=== PATIENT | male | born 1980 | race Caucasian/White ===

== ENCOUNTER 2025-01-02 18:49 | Emergency (ER) | payer OTHER, SELFPAY ==
[2025-01-02 18:51] VITALS: BP 140/95; PULSE 68; TEMP 36.6; O2SAT 96; BMI 23.7
--- NOTE | 2025-01-02 19:12 | ED_ITS ---
HPI HPI - General Adult General Chief complaint: Abdominal Pain Stated complaint: ABDOMINAL PAIN Time Seen by Provider: 01/02/25 18:50 Source: patient Mode of arrival: Wheelchair Limitations: no limitations History of Present Illness HPI narrative: Patient is a 44-year-old male who presents to the emergency department for evaluation of umbilical and epigastric abdominal pain that began this afternoon. He states the pain was worse after eating this afternoon. He has had no fevers, nausea, vomiting or diarrhea. He states he had a normal bowel movement this morning. No urinary symptoms. He denies any previous abdominal surgeries. No medications taken prior to arrival. Related Data Previous Rx's ?Medication ?Instructions ?Recorded dicyclomine 20 mg tablet 20 mg PO QID PRN abdominal pain 01/02/25 #12 tabs famotidine 20 mg tablet (Pepcid) 20 mg PO BID #10 tabs 01/02/25 hydrocodone 5 mg-acetaminophen 325 1 tab PO Q6H PRN pain 3 days #12 01/02/25 mg tablet tabs ondansetron 4 mg disintegrating 4 mg PO Q6H PRN nausea and 01/02/25 tablet vomiting #12 tabs Allergies Allergy/AdvReac Type Severity Reaction Status Date / Time No Known Drug Allergies Allergy Verified 01/02/25 18:54 Opioid HPI Opioid Management Most Recent Opioid Data: No Data to Display Review of Systems ROS Constitutional Denies: fever or chills Ears, nose, mouth, and throat Denies: throat pain or nasal congestion Cardiovascular Denies: chest pain Respiratory Denies: shortness of breath or cough Gastrointestinal Reports: abdominal pain; Denies: nausea, vomiting or diarrhea Musculoskeletal Denies: back pain or neck pain Integumentary/Breast Denies: rash Neurological Denies: numbness in extremities or weakness in extremities Hematologic/Lymphatic Denies: easy bruising or easy bleeding PFSH PFSH Social History Little interest or pleasure in doing things: not at all Feeling down, depressed, or hopeless: not at all Exam Narrative Exam Narrative: Gen.: Awake, alert, in no distress Head: Normocephalic, atraumatic ENT: Moist mucous membranes Respiratory: No respiratory distress Gastrointestinal: Abdomen is soft, tender in the umbilicus and epigastrium with no distention or rigidity. No guarding or rebound Extremities: Moves extremities equally Psych: Normal mood and affect Neuro: No focal neuro deficit Skin: Warm, dry, intact Constitutional Vital Signs, click to edit/add: Last Vital Signs Temp 97.8 F 01/02/25 18:51 Pulse 64 01/02/25 21:46 Resp 16 01/02/25 21:46 BP 128/89 01/02/25 21:46 Pulse Ox 99 01/02/25 21:46 O2 Del Method Room Air 01/02/25 21:46 Course Vital Signs Vital signs: Vital Signs Temperature 97.8 F 01/02/25 18:51 Pulse Rate 68 01/02/25 18:51 Respiratory Rate 22 H 01/02/25 18:51 Blood Pressure 140/95 H 01/02/25 18:51 Pulse Oximetry 96 01/02/25 18:51 Oxygen Delivery Method Room Air 01/02/25 18:51 Temperature 97.8 F 01/02/25 18:51 Pulse Rate 64 01/02/25 21:46 Respiratory Rate 16 01/02/25 21:46 Blood Pressure 128/89 01/02/25 21:46 Pulse Oximetry 99 01/02/25 21:46 Oxygen Delivery Method Room Air 01/02/25 21:46 Medical Decision Making MDM Narrative Medical decision making narrative: Patient treated with IV fluids, morphine, Zofran and Protonix. He is resting comfortably on reevaluation. Laboratory studies reviewed and noted within normal limits. CT of the abdomen and pelvis shows the patient has enteritis with no other acute abnormalities. He was given education and reassurance. Medication sent home with him for tonight and prescription sent to the pharmacy, short course of [place], Zofran, Bentyl and Pepcid. He was instructed to follow a clear liquid diet for 48 hours. Follow-up with PCP and return to the emergency department if symptoms change or worsen. Abdomen is soft and benign at discharge. SUPERVISED APC VISIT, PHYSICIAN ATTESTATION: Based on the medical record the care appears appropriate. ? Medical Records Medical records reviewed: Yes I reviewed the patient's medical records Lab Data Lab results reviewed: Yes I reviewed the patient's lab results Labs: Lab Results 01/02/25 01/02/25 Range/Units 19:20 20:02 WBC 8.9 (4.0-11.0) 10^3/uL RBC 4.96 (4.70-6.10) 10^6/uL Hgb 16.2 (14.0-18.0) g/dL Hct 47.8 (42.0-54.0) % MCV 96.4 H (80.0-94.0) fL MCH 32.7 (25.9-34.0) pg MCHC 33.9 (29.9-35.2) g/dL RDW 13.4 (11.0-15.0) % Plt Count 233 (150-450) 10^3/uL MPV 9.8 (9.5-13.5) fL Neut % (Auto) 73.1 (43.0-75.0) % Lymph % (Auto) 16.9 L (20.5-60.0) % Divide % (Auto) 8.7 (1.7-12.0) % Eos % (Auto) 0.8 L (0.9-7.0) % Baso % (Auto) 0.3 (0.2-2.0) % Neut # (Auto) 6.5 (1.4-6.5) 10^3/uL Lymph # (Auto) 1.5 (1.2-3.8) 10^3/uL Divide # (Auto) 0.8 (0.3-0.8) 10^3/uL Eos # (Auto) 0.1 (0.0-0.7) 10^3/uL Baso # (Auto) 0.0 (0.0-0.1) 10^3/uL Abs Immat Gran (auto) 0.02 (0.00-0.03) 10^3/uL Imm/Tot Granulo (auto) 0.2 (0.0-0.5) % PT 11.0 (9.0-11.6) sec INR 1.04 Sodium 138 (136-145) mmol/L Potassium 3.9 (3.5-5.1) mmol/L Chloride 102 (98-107) mmol/L Carbon Dioxide 34.3 H (21.0-32.0) mmol/L Anion Gap 5.6 BUN 10.0 (7.0-18.0) mg/dL Creatinine 1.27 (0.70-1.30) mg/dL Est GFR ( Amer) >60 (>=60 mL/min/1.73m^2) Est GFR (Non-Af Amer) >60 (>=60 mL/min/1.73m^2) BUN/Creatinine Ratio 7.9 Glucose 96 (74-106) mg/dL Lactate 1.0 (0.4-2.0) mmol/L Calcium 9.7 (8.5-10.1) mg/dL Total Bilirubin 0.9 (0.2-1.0) mg/dL AST 26 (15-37) U/L ALT 40 (16-63) U/L Alkaline Phosphatase 71 (46-116) U/L Total Protein 8.0 (6.4-8.2) g/dL Albumin 4.0 (3.4-5.0) g/dL Globulin 4.0 g/dL Albumin/Globulin Ratio 1.0 Lipase 40.0 (16.0-77.0) U/L Urine Color Lt. yellow (YELLOW) Urine Clarity Clear (CLEAR) Urine pH 7.5 (5.0-9.0) Ur Specific Gerry 1.010 (1.005-1.025) Urine Protein Negative (NEG/TRACE) mg/dL Urine Glucose (UA) Negative (NEGATIVE) mg/dL Urine Ketones Negative (NEGATIVE) mg/dL Urine Occult Blood Negative (NEGATIVE) Urine Nitrite Negative (NEGATIVE) Urine Bilirubin Negative (NEGATIVE) Urine Urobilinogen 4.0 A (0.2-1.0) EU/dL Ur Leukocyte Esterase Negative (NEGATIVE) Urine RBC 0-2 (0-2) #/HPF Urine WBC 0-2 A (NONE SEEN) #/HPF Ur Squamous Epith Cells None seen (NONE/RARE) #/LPF Urine Crystals None seen (None Seen) #/HPF Amorphous Sediment Moderate Urine Bacteria Trace A (NONE SEEN) #/HPF Urine Casts None seen (NONE SEEN) #/LPF Urine Mucus None seen (NONE SEEN) Ur Culture Indicated? No Imaging Data CT scan - abdomen: Attestation: I have reviewed the pertinent imaging results. Discharge Plan Discharge Chief Complaint: Abdominal Pain Clinical Impression: Abdominal pain, Enteritis Patient Disposition: Home, Self-Care Time of Disposition Decision: 21:47 Condition: Good Mode of Transportation: Private Vehicle Prescriptions / Home Meds: New hydrocodone-acetaminophen 5-325 mg tablet 1 tab PO Q6H PRN (Reason: pain) 3 Days Qty: 12 0RF Rx Instructions: DX: R10.9 dicyclomine 20 mg tablet 20 mg PO QID PRN (Reason: abdominal pain) Qty: 12 0RF famotidine [Pepcid] 20 mg tablet 20 mg PO BID Qty: 10 0RF ondansetron 4 mg tablet,disintegrating 4 mg PO Q6H PRN (Reason: nausea and vomiting) Qty: 12 0RF Print Language: Korean Instructions: Clear Liquid Diet (ED), Enteritis (ED) Referrals: Physician,Non-Staff, MD [Primary Care Provider] - 1 week Discharge Date/Time: 01/02/25 22:06
[2025-01-02] MEDS: ONDANSETRON PF 4 MG/2 ML VIAL IV (19:29)
[2025-01-02] MEDS: MORPHINE SULFATE 4 MG/ML VIAL IV (19:29)
[2025-01-02] MEDS: HYOSCYAMINE SULFATE 0.125 MG TAB.SUBL SL ×2 (19:30→22:01)
[2025-01-02] MEDS: PANTOPRAZOLE SODIUM 40 MG VIAL IV (19:30)
[2025-01-02] MEDS: 0.9 % SODIUM CHLORIDE 1,000 ML 999 ML IV (19:30)
[2025-01-02 19:42] LABS: Basophils Percent Auto 0.3 % (0.2-2.0); Eosinophils Absolute Auto 0.1 10^3/uL (0.0-0.7); Eosinophils Percent Auto 0.8 % (0.9-7.0); Hematocrit 47.8 % (42.0-54.0); Hemoglobin 16.2 g/dL (14.0-18.0); Immature Granulocytes Abs Auto 0.02 10^3/uL (0.00-0.03); Immature Granulocytes Pct Auto 0.2 % (0.0-0.5); Lymphocytes Absolute Auto 1.5 10^3/uL (1.2-3.8); Lymphocytes Percent Auto 16.9 % (20.5-60.0); Mean Corpuscular HGB Conc 33.9 g/dL (29.9-35.2); Mean Corpuscular Hemoglobin 32.7 pg (25.9-34.0); Mean Corpuscular Volume 96.4 fL (80.0-94.0); Mean Platelet Volume 9.8 fL (9.5-13.5); Monocytes Absolute Auto 0.8 10^3/uL (0.3-0.8); Monocytes Percent Auto 8.7 % (1.7-12.0); Neutrophils Absolute Auto 6.5 10^3/uL (1.4-6.5); Neutrophils Percent Auto 73.1 % (43.0-75.0); Platelet Count 233 10^3/uL (150-450); Red Blood Count 4.96 10^6/uL (4.70-6.10); Red Cell Distribution Width 13.4 % (11.0-15.0); White Blood Count 8.9 10^3/uL (4.0-11.0)
[2025-01-02 19:53] LABS: Alanine Aminotransferase 40 U/L (16-63); Alkaline Phosphatase 71 U/L (46-116); Anion Gap 5.6; Aspartate Amino Transferase 26 U/L (15-37); BUN Creatinine Ratio 7.9; Bilirubin Total 0.9 mg/dL (0.2-1.0); Calcium 9.7 mg/dL (8.5-10.1); Carbon Dioxide 34.3 mmol/L (21.0-32.0); Chloride 102 mmol/L (98-107); Estimated GFR (African America >60 (>=60 mL/min/1.73m^2); Estimated GFR (Non-African Ame >60 (>=60 mL/min/1.73m^2); Glucose 96 mg/dL (74-106); Potassium 3.9 mmol/L (3.5-5.1); Sodium 138 mmol/L (136-145)
[2025-01-02 19:55] LABS: INR 1.04
[2025-01-02 20:17] LABS: Bilirubin Urine NEGATIVE (NEGATIVE); Blood Urine NEGATIVE (NEGATIVE); Clarity Urine CLEAR (CLEAR); Color Urine LT. YELLOW (YELLOW); Glucose Urine UA NEGATIVE (NEGATIVE); Ketones Urine NEGATIVE (NEGATIVE); Leukocyte Esterase Urine NEGATIVE (NEGATIVE); Nitrite Urine NEGATIVE (NEGATIVE); Protein Urine NEGATIVE (NEG/TRACE); pH Urine 7.5 (5.0-9.0)
[2025-01-02 20:24] LABS: Bacteria Urine TRACE #/HPF (NONE SEEN); Cast Seen? NONE SEEN #/LPF (NONE SEEN); Crystals Seen? None Seen #/HPF (None Seen); Mucus Urine NONE SEEN (NONE SEEN); RBC Urine 0-2 #/HPF (0-2); Squamous Epithelial Cell Urine NONE SEEN #/LPF (NONE/RARE); WBC Urine 0-2 #/HPF (NONE SEEN)
[2025-01-02 20:25] LABS: Amorphous Sediment Urine MODERATE; Urine Culture Indicated NO
[2025-01-02 21:46] VITALS: BP 128/89; PULSE 64; O2SAT 99
[2025-01-02] MEDS: ONDANSETRON 4 MG RAPDIS TABLET SL (22:01)
[2025-01-02] MEDS: HYDROCODONE/ACET 5-325 MG TABLET 1 TAB PO (22:01)
== END 2025-01-02 22:06 | disposition home or self-care (01) ==
PROVIDERS: Physician Assistant; Emergency Provider Internal Medicine
DX: R10.84 Generalized abdominal pain (principal); K52.9 Noninfective gastroenteritis and colitis, unspecified
CPT/HCPCS: 36415; 74177; 80053; 81001; 83605; 83690; 85025; 85610; 96374; 96375; 99285; J2270; J2405; Q0162; Q9967